=== PATIENT | male | born 1985 | race African-American/Black ===

== ENCOUNTER 2018-06-11 09:30 | Inpatient (IN) | payer OTHER ==
--- NOTE | 2018-06-11 10:41 | RAD ---
HISTORY: cp, chest pain COMPARISONS: None VIEWS: 1: frontal portable view of the chest at 10:20 AM FINDINGS: LINES AND TUBES: None. CARDIOMEDIASTINAL SILHOUETTE: The cardiomediastinal silhouette is normal for portable technique. PLEURA: The costophrenic angles are sharp. No pleural abnormalities are noted. LUNG PARENCHYMA: The lungs are clear. ABDOMEN: The upper abdomen is clear. There is no subphrenic gas. BONES AND SOFT TISSUES: No bone or soft tissue abnormalities are noted. IMPRESSION: NO ACTIVE CARDIOPULMONARY DISEASE.
[2018-06-11 10:53] LABS: ABS Basophils 0 10^3/ul (0-0.2); ABS Eosinophils 0 10^3/ul (0-0.6); ABS Lymphocytes 1.3 10^3/ul (1.0-4.8); ABS Monocytes 0.5 10^3/ul (0-0.8); ABS Neutrophils 5.4 10^3/ul (1.5-7.7); ABS Nucleated RBC 0 10^3/ul; Eosinophil % 0.4 % (0-6); Hematocrit 39 % (42-52); Hemoglobin 13.9 g/dl (14.0-18.0); Lymphocyte % 18.4 % (25-47); Mean Corpuscular HGB Conc 35 g/dl (31-36); Mean Corpuscular Hemoglobin 29 pg (27-31); Mean Corpuscular Volume 83 fL (80-94); Mean Platelet Volume 10.2 um3 (7.4-10.4); Nucleated Red Blood Cells % 0.2; Platelet Count 307 10^3/ul (150-450); Red Blood Count 4.76 10^6/ul (4.00-5.40); Red Cell Distribution Width 12 % (10.5-15); White Blood Count 7.3 10^3/ul (3.5-10.8)
[2018-06-11 11:12] LABS: EGFR Non-African American 36.1 (>60)
--- NOTE | 2018-06-11 12:06 | ED ---
HPI Chest Pain - HPI Summary HPI Summary: This is leonardo Richmond documenting for Dr. Douglas Ya MD. Pt is a 33 y/o M BIBA c/o chest pain. The chest pain began several weeks ago and is intermittent. When present it stays for a few minutes. The pain has been worse for the past 3 days and during triage he rated the pain as a 6/10 in intensity. When physician in the room pt reports pain is not present at the moment. Notes SOB and dizziness. Denies nausea. Hasnt smoked in 5 years and his last time using cocaine was months ago. FHx of stroke and pacemaker. - History of Current Complaint Chief Complaint: EDChestPainROMI Time Seen by Provider: 06/11/18 10:05 Hx Obtained From: Patient Onset/Duration: Started Days Ago - became worse 3 days ago, Started Weeks Ago Timing: Intermittent, Lasting Minutes Current Severity: Moderate Pain Intensity: 6 Pain Scale Used: 0-10 Numeric Aggravating Factor(s): Position Associated Signs and Symptoms: Positive: Chest Pain, Dizziness, Shortness of Breath. Negative: Nausea - Allergy/Home Medications Allergies/Adverse Reactions: Allergies Allergy/AdvReac Type Severity Reaction Status Date / Time Penicillins Allergy Unknown Verified 06/11/18 09:36 Reaction Details sulfamethoxazole Allergy Unknown Verified 06/11/18 09:36 [From Bactrim] Reaction Details trimethoprim [From Bactrim] Allergy Unknown Verified 06/11/18 09:36 Reaction Details Home Medications: Home Medications Hydrochlorothiazide TAB* [Hydrodiuril TAB*] 25 mg PO DAILY 06/11/18 [History Confirmed 06/11/18] Levofloxacin TAB* [Levaquin 500 Tab*] 1 tab PO DAILY 06/11/18 [History Confirmed 06/11/18] Lisinopril 10 mg PO DAILY 06/11/18 [History Confirmed 06/11/18] amLODIPine TAB* [Norvasc 5 mg TAB*] 10 mg PO DAILY 06/11/18 [History Confirmed 06/11/18] metFORMIN* [Glucophage 500 MG TAB *] 500 mg PO BID 06/11/18 [History Confirmed 06/11/18] PMH/Surg Hx/FS Hx/Imm Hx Cardiovascular History: Reports: Hx Hypertension Sensory History: Denies: Hx Deafness Infectious Disease History: No Infectious Disease History: Denies: Traveled Outside the [place] in Last 30 Days - Family History Known Family History: Positive: Diabetes, Other - Stroke - Social History Alcohol Use: None Substance Use Type: Reports: None Substance Use Comment - Amount & Last Used: hx of cocaine use Smoking Status (MU): Never Smoked Tobacco Review of Systems Positive: Other - Dizziness Positive: Chest Pain Positive: Shortness Of Breath Negative: Nausea All Other Systems Reviewed And Are Negative: Yes Physical Exam - Summary Physical Exam Summary: Appearance: Well appearing, no pain distress Skin: warm, dry, reflects adequate perfusion Head/face: normal Eyes: EOMI, ESTEBAN ENT: normal Neck: supple, non-tender Respiratory: CTA, breath sounds present Cardiovascular: RRR, pulses symmetrical Abdomen: non-tender, soft Bowel: present Musculoskeletal: normal, strength/ROM intact Neuro: normal, sensory motor intact, A&Ox3 Triage Information Reviewed: Yes Vital Signs On Initial Exam: Initial Vitals Temp Pulse Resp BP Pulse Ox 96.9 F 84 16 121/68 100 06/11/18 09:33 06/11/18 09:33 06/11/18 09:33 06/11/18 09:33 06/11/18 09:33 Vital Signs Reviewed: Yes Diagnostics - Vital Signs Vital Signs Temp Pulse Resp BP Pulse Ox 06/11/18 11:45 24 98/65 06/11/18 11:15 17 124/73 06/11/18 11:00 15 06/11/18 10:45 17 138/82 06/11/18 10:15 87 17 131/72 96 06/11/18 10:00 82 23 98 06/11/18 09:45 85 21 100/54 100 06/11/18 09:39 88 22 99 06/11/18 09:33 96.9 F 84 16 121/68 100 - Laboratory Lab Results: Lab Results 06/11/18 06/11/18 06/11/18 Range/Units 10:43 10:43 10:43 WBC 7.3 (3.5-10.8) 10^3/ul RBC 4.76 (4.00-5.40) 10^6/ul Hgb 13.9 L (14.0-18.0) g/dl Hct 39 L (42-52) % MCV 83 (80-94) fL MCH 29 (27-31) pg MCHC 35 (31-36) g/dl RDW 12 (10.5-15) % Plt Count 307 (150-450) 10^3/ul MPV 10.2 (7.4-10.4) um3 Neut % (Auto) 73.5 (38-83) % Lymph % (Auto) 18.4 L (25-47) % [place] % (Auto) 7.3 H (0-7) % Eos % (Auto) 0.4 (0-6) % Baso % (Auto) 0.4 (0-2) % Absolute Neuts (auto) 5.4 (1.5-7.7) 10^3/ul Absolute Lymphs (auto) 1.3 (1.0-4.8) 10^3/ul Absolute Monos (auto) 0.5 (0-0.8) 10^3/ul Absolute Eos (auto) 0 (0-0.6) 10^3/ul Absolute Basos (auto) 0 (0-0.2) 10^3/ul Absolute Nucleated RBC 0 10^3/ul Nucleated RBC % 0.2 INR (Anticoag Therapy) 1.00 (0.77-1.02) APTT 26.9 (26.0-36.3) seconds D-Dimer, Quantitative < 200 (Less Than 230) ng/mL Sodium 128 L (135-145) mmol/L Potassium 3.2 L (3.5-5.0) mmol/L Chloride 87 L (101-111) mmol/L Carbon Dioxide 28 (22-32) mmol/L Anion Gap 13 H (2-11) mmol/L BUN 20 (6-24) mg/dL Creatinine 2.11 H (0.67-1.17) mg/dL Est GFR ( Amer) 43.7 (>60) Est GFR (Non-Af Amer) 36.1 (>60) BUN/Creatinine Ratio 9.5 (8-20) Glucose 344 H (70-100) mg/dL Calcium 9.2 (8.6-10.3) mg/dL Total Bilirubin 0.70 (0.2-1.0) mg/dL AST 17 (13-39) U/L ALT 22 (7-52) U/L Alkaline Phosphatase 68 (34-104) U/L Total Creatine Kinase 418 H (10-223) U/L Troponin I 0.00 (<0.04) ng/mL B-Natriuretic Peptide ( - 100) pg/mL Total Protein 6.9 (6.4-8.9) g/dL Albumin 4.0 (3.2-5.2) g/dL Globulin 2.9 (2-4) g/dL Albumin/Globulin Ratio 1.4 (1-3) / Range/Units 10:43 WBC (3.5-10.8) 10^3/ul RBC (4.00-5.40) 10^6/ul Hgb (14.0-18.0) g/dl Hct (42-52) % MCV (80-94) fL MCH (27-31) pg MCHC (31-36) g/dl RDW (10.5-15) % Plt Count (150-450) 10^3/ul MPV (7.4-10.4) um3 Neut % (Auto) (38-83) % Lymph % (Auto) (25-47) % [place] % (Auto) (0-7) % Eos % (Auto) (0-6) % Baso % (Auto) (0-2) % Absolute Neuts (auto) (1.5-7.7) 10^3/ul Absolute Lymphs (auto) (1.0-4.8) 10^3/ul Absolute Monos (auto) (0-0.8) 10^3/ul Absolute Eos (auto) (0-0.6) 10^3/ul Absolute Basos (auto) (0-0.2) 10^3/ul Absolute Nucleated RBC 10^3/ul Nucleated RBC % INR (Anticoag Therapy) (0.77-1.02) APTT (26.0-36.3) seconds D-Dimer, Quantitative (Less Than 230) ng/mL Sodium (135-145) mmol/L Potassium (3.5-5.0) mmol/L Chloride (101-111) mmol/L Carbon Dioxide (22-32) mmol/L Anion Gap (2-11) mmol/L BUN (6-24) mg/dL Creatinine (0.67-1.17) mg/dL Est GFR ( Amer) (>60) Est GFR (Non-Af Amer) (>60) BUN/Creatinine Ratio (8-20) Glucose (70-100) mg/dL Calcium (8.6-10.3) mg/dL Total Bilirubin (0.2-1.0) mg/dL AST (13-39) U/L ALT (7-52) U/L Alkaline Phosphatase (34-104) U/L Total Creatine Kinase (10-223) U/L Troponin I (<0.04) ng/mL B-Natriuretic Peptide 6 ( - 100) pg/mL Total Protein (6.4-8.9) g/dL Albumin (3.2-5.2) g/dL Globulin (2-4) g/dL Albumin/Globulin Ratio (1-3) Result Diagrams: 06/11/18 10:43 06/11/18 10:43 Lab Statement: Any lab studies that have been ordered have been reviewed, and results considered in the medical decision making process. - Radiology CXR Radiology Interpretation Completed By: Radiologist - 10:10. Impression: No active cardiopulmonary disease. ED Physician reviewed this report. - Ultrasound No standard instances Ultrasound Interpretation Completed By: Radiologist - Renal US. 13:19. IMPRESSION: 1. NORMAL EXAMINATION OF THE KIDNEYS. 2. CHOLELITHIASIS. ED Physician reviewed this report. - EKG 09:48 Cardiac Rate: NL - 86 bpm EKG Rhythm: Sinus Rhythm EKG Interpretation: No acute changes Chest Pain Course/Dx - Course Course Of Treatment: Pt is a 33 y/o M BIBA c/o intermittent chest pain that he rates as a 6/10 in severity. The pain has been worse for the past 3 days. Notes SOB and dizziness and nausea. FHx of diabetes. His physical exam was normal. CXR showed no active cardiopulmonary disease. Renal US showed normal examination of the kidneys and cholelithiasis. EKG has normal sinus rhythm at 86 bpm with no acute changes. His glucose levels were 344 mg/dL. Pt was given Tylenol, Norvasc, ASA, hydrodiuril, insulin, nitroglycerin, Zofran, Klor-Con and fluids in the ED course. Pt is diagnosed with diabetes, hypertension, chest pain, and ruled out OR. Spoke with hospitalist Dr. Ortiz who agreed to admit pt. Pt is agreeable with this plan. - Chest Pain Differential Diagnosis/HQI/PQRI: Acute OR, ACS, Angina, CHF, Chest Wall, Lower Respiratory Infection - Diagnoses Provider Diagnoses: Diabetes, HTN (hypertension), Chest pain, Ruled out for myocardial infarction - Provider Notifications Discussed Care Of Patient With: Adina Ortiz Time Discussed With Above Provider: 02:01 Instructed by Provider To: Other - Dr. Ortiz agrees to admit pt. Discharge - Sign-Out/Discharge Documenting (check all that apply): Patient Departure - Admit - Discharge Plan Condition: Fair Disposition: ADMITTED TO [facility] - Billing Disposition and Condition Condition: FAIR Disposition: Admitted to [facility]
[2018-06-11 12:56] LABS: Urine Appearance Cloudy; Urine Blood Negative (Negative); Urine Color Yellow; Urine Ketones Trace (Negative); Urine Protein Negative (Negative); Urine Urobilinogen Negative (Negative)
[2018-06-11] MEDS ORDERED: Acetaminophen TAB* 325 MG PO PRN (13:00)
[2018-06-11] MEDS ORDERED: Nitroglycerin TAB 0.4 MG* 0.4 MG TAB SL PRN (13:00)
[2018-06-11] MEDS ORDERED: Ondansetron INJ* 2 MG/ML VIAL IV PRN (13:00)
[2018-06-11] MEDS ORDERED: Dextrose 50% Syringe 50 ML* 25 GM/50 ML SYRINGE IV PUSH PRN (13:16)
[2018-06-11] MEDS ORDERED: Potassium Chloride LIQUID* 20 MEQ PACKET PO ONE (13:26)
--- NOTE | 2018-06-11 14:07 | RAD ---
INDICATION: Kidney disease, unknown chronicity. COMPARISON: There are no prior studies available for comparison. TECHNIQUE: Multiple real-time images of the kidneys were obtained. FINDINGS: The kidneys are normal in size shape and echogenicity. The right kidney measured 13.1 x 5.3 x 6.4 cm and the left kidney measured 13.5 x 6.4 x 5.1 cm. No significant focal abnormality or hydronephrosis is seen. Note is made of multiple gallstones. The gallbladder wall is not thickened. IMPRESSION: 1. NORMAL EXAMINATION OF THE KIDNEYS. 2. CHOLELITHIASIS.
[2018-06-11] MEDS: NS 0.9% 1000 ML* 1,000 ML IV SCH (15:44)
[2018-06-11] MEDS: Insulin LISPRO* 1 UNITS UNIT SUBCUT SCH ×2 (17:24→20:53)
--- NOTE | 2018-06-11 20:38 | HP ---
CC: [facility] * ADMISSION HISTORY AND PHYSICAL: DATE OF ADMISSION: 06/11/18 PRIMARY CARE PROVIDER: [facility]. MY ATTENDING WHILE IN THE HOSPITAL: Dr. Adina Ortiz.* (DICTATED BY JO-ANN RUBI) CHIEF COMPLAINT: Chest pain, hemoptysis. HISTORY OF PRESENT ILLNESS: Mr. Carmona is a 33-year-old male with past medical history significant for diabetes mellitus, type 2; mild intermittent asthma; hypertension; obesity, who is currently incarcerated and was transferred from [facility] to [facility]. The patient states that he has been having relatively abrupt onset of fatigue, shortness of breath, which occurs both with activity, particularly with leaning forward as well as at rest, occasionally associated wheezing, not always associated with wheezing, dissimilar to his previous history of intermittent asthma. The patient states that 1 week ago, he had a chest pain and a cough with moderate amount of hemoptysis, which he coughed into the toilet. The patient has not had issues with chronic cough or recent persistent cough. The patient states that he around that time began attempting to exercise more to get in better shape; however, he has only been managing to do approximately 10 to 15 pushups at a time due to feeling rather fatigued and having a very poor appetite. The patient had 1 episode of dark urine last week, but no other changes in his urine. No blood in his urinates. No pain when he urinates. The patent has no know history of kidney disease. The patient had another episode of substernal pain chest pain last night, which was sharp and associated with dizziness and nausea that resolved on its own after several minutes. The patient had another episode this morning of similar pain and was sent to the emergency room and was given aspirin and nitroglycerin, which helped somewhat. He was also given Zofran, which helped with his nausea. The patient states that the pain radiated down in his left arm and his back. The patient was recently diagnosed with a rash both in his gluteal cleft as well as his left groin. The patient stated that he gets frequent folliculitis in his axilla, which resolves spontaneously or antibiotics and he was started on Levaquin yesterday for his rash and had only taken 1 dose. The patient denies any recent severe increase in activity, no other recent illnesses, no other recent changes in his medications or diet. The patient states that his most recent weight that he was aware of is approximately 340 pounds and his weight today in the emergency department was approximately 300 pounds. The patient in the emergency department had sodium of 128, potassium 3.2, creatinine of 2.11, BUN of 20, glucose of 344, creatine kinase of 418, troponin I of 0.00 and a BNP of 6 with urine showing trace ketones and a large amount of glucose. Due to the concern for chest pain and kidney disease of unknown chronicity, we were asked to admit to the hospital. PAST MEDICAL HISTORY: Diabetes mellitus, hypertension, heart murmur, mild intermittent asthma. PAST SURGICAL HISTORY: None. MEDICATIONS: 1. Lisinopril 10 mg p.o. daily. 2. Hydrochlorothiazide 25 mg p.o. daily. 3. Amlodipine 10 mg p.o. daily. 4. Levaquin 500 mg p.o. daily x1. 5. Metformin 500 mg b.i.d. ALLERGIES: PENICILLIN and BACTRIM. FAMILY HISTORY: The patient's mother had diabetes, hypertension, stroke, pacemaker, and heart disease. The patient's father of natural causes. The patient has several brothers all of whom have diabetes and his oldest brother has congestive heart failure due to [place] as well. SOCIAL HISTORY: The patient smoked 1 to 2 cigarettes a day for approximately 4 years, but quit. The patient does not drink alcohol, he has never abused alcohol. The patient used to use crack cocaine for a small amount of time many years ago. 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 The patient is and has 5 children. The patient would like to be a full code. REVIEW OF SYSTEMS: A 14-point review of systems was reviewed and is negative except as above. PHYSICAL EXAMINATION GENERAL: The patient is a 33-year-old male, who appears stated age and sitting comfortably in the bed, in no acute distress. HEENT: Head: Normocephalic, atraumatic. Sclerae anicteric. No conjunctival injection. Nasal mucosa is moist. Oral mucosa is moist. No oropharyngeal erythema, discharge, or exudate. NECK: Supple, nontender. No lymphadenopathy. No carotid bruits auscultated. No JVD. RESPIRATORY: Clear to auscultation bilaterally. No wheezes, rales, or rhonchi. Good air exchange bilaterally. Egophony negative. CARDIAC: Regular rate and rhythm. No clicks, murmurs, gallops, or rubs. Pulses are 2+ in the bilateral dorsalis pedis, posterior tibialis, and radial areas. No bilateral lower extremity edema or calf tenderness noted. ABDOMEN: Soft, nontender, nondistended. Bowel sounds present, normoactive in all 4 quadrants. No hepatosplenomegaly. No abdominal bruits auscultated. No hepatojugular reflux. GENITOURINARY: No suprapubic tenderness and left-sided CVA tenderness. SKIN: The patient has a small open area at the top of his gluteal cleft and a small nonerythematous papule in his left groin, not currently draining. NEUROLOGIC: Cranial nerves II through XII intact except for right-sided esotropia. No focal deficits. Alert and oriented x3 PSYCHIATRIC: Pleasant and cooperative. DIAGNOSTIC STUDIES/LAB DATA: White blood cell count 7.3, hemoglobin 13.9, platelet count 307. INR 1.0, aPTT is 26.9. D-dimer less than 200. Sodium 128 , potassium 3.2, chloride 87, carbon dioxide 28, anion gap 13, BUN 20, creatinine 2.11, glucose 344, calcium 9.2. Bilirubin 0.7, AST 17, ALT 22, alkaline phosphatase 68. Creatine kinase 418, CK-MB 1.6. Troponin 0.00. BNP 6. Total protein 6.9, albumin 4.0, globulin 2.9. Urine shows trace ketones and large amount of glucose. No other significant abnormalities. Studies: EKG shows normal sinus rhythm. Q-waves are present. No ST-segment abnormalities. No hypertrophy or enlargement. QTc of 522, rate of 86. No prior study to compare. Chest x-ray read as no active cardiopulmonary disease. ASSESSMENT AND PLAN/IMPRESSION: Mr. Carmona is a 33-year-old male with past medical history significant for diabetes mellitus, hypertension, mild intermittent asthma, who presents with 3 episodes of chest pain over the past week, 2 particularly being within the left 24 hours, who has new elevated creatinine as well as hyponatremia and hemoptysis who will be admitted to the hospital for evaluation of his chest pain to rule out myocardial infarction as well as to establish an etiology for his kidney disease. 1. Chest pain. The patient had a 3 episodes of chest pain. The patient has a ZOILA risk of 2 due to risk factors including family history of coronary artery disease, hypertension, and diabetes. The patient will have a lipid profile drawn. The patient will also have a hemoglobin A1c drawn. The patient will have 3 troponins trended. The patient does not have ischemic EKG changes at this time. The patient's troponin and CK-MB are currently negative. Will add on myoglobin, this may be positive in the setting of elevated creatine kinase and would not necessarily indicate early myocardial infarction. We will repeat EKG in the morning, get a transthoracic echocardiogram to assess for wall motion abnormalities. If the patient is still in the hospital on Thursday when a stress echocardiogram would be available, I recommend this be performed. However, if the patient is stable for discharge over the weekend, an outpatient stress test may also be appropriate. 2. Elevated creatinine of unknown chronicity. The patient has no known history of chronic kidney disease. The patient had 1 episode of dark urine last week. The patient has recently started exercising more, but has not been exercising excessively and has had issues with fatigue, shortness of breath, and weight loss over the past couple of weeks, which started relatively suddenly. The patient's urinalysis is benign, not showing any signs of macroalbuminuria. Given the patient's age, it is unlikely that this level of creatinine elevation is related solely to his hypertension and diabetes. The patient also does not have an elevated BUN to creatinine ratio to indicate a prerenal etiology of his elevated creatinine. We will calculate his FENa, which is pending as well as get an ultrasound of the patient's kidneys to help assess the chronicity of his kidney disease. We will trend the patient's creatine kinase and myoglobin. It is possible that even his minor increase in exertion caused rhabdomyolysis, which is currently resolving. We will give the patient fluid to help with both prerenal and the possibility of rhabdomyolysis. The patient will have a repeat BMP in the morning. We will replace the patient's potassium. The patient's urinalysis is benign showing no blood, casts , white blood cells, or protein. This makes intrinsic autoimmune process affecting the patient's kidneys less likely. However, given the patient's hemoptysis in association with new kidney disease, there is concern for autoimmune disease. We will send off an ESR, CRP, and ANCA panel. Handle Machine Operator consultation should be considered if the patient continues to have elevated creatinine after fluids. The patient's lisinopril will be held due to elevated creatinine. 3. Hemoptysis, shortness of breath. The patient has hemoptysis of unknown cause. The patient does not have recent history of nosebleeds or evidence on exam of nosebleeds. The patient has no bleeding diathesis that is known. The patient's INR and aPTT are normal. The patient's D-dimer is negative. The patient has no signs of DVT. The patient is not tachycardic. The patient has no infiltrate on chest x-ray. The patient has no signs of consolidation on exam. As above, there is concern for possible vasculitis, though these conditions are rare. The patient will be monitored for hemoptysis and has a repeat chest x-ray in the morning to assess for possible pneumonia. The patient is also having a CRP and ESR drawn to help guide treatment. The patient has no tachycardia, hypotension, or fever and will not be started on antibiotics at this time. 4. Hypertension. Continue the patient's amlodipine and hydrochlorothiazide. The patient is currently normotensive. Hold lisinopril as above. 5. Diabetes mellitus, type 2. The patient has an elevated glucose of 344. Now , the patient does not routinely monitor his blood sugars. The patient was started on sliding scale insulin and his metformin will be held in the setting of his decreased GFR. Hemoglobin A1c will be drawn. Treatment with either oral anti- hypoglycemics or insulin should be based upon that value. 6. Hyponatremia. The patient has a sodium of 128. If the patient's glucose is taken into account, this corrects to 135, which is within normal limits. 7. Hypokalemia. The patient's potassium is low. Given the patient's elevated creatinine, this is unexpected. This may be due to diuresis due to uncontrolled diabetes. We will replace. 8. DVT prophylaxis. The patient is a low risk. The patient will have SCDs due to relative immobilization from shackles. 9. FEN. The patient will have fluids at 100 mL an hour. The patient will have a heart-healthy consisting carbohydrate diet. 10. Code status. The patient would like to be a full code. 11. Disposition. The patient will be admitted to observation. TIME SPENT: Approximately 75 minutes were spent on this admission, 45 of which was spent [id number] with the patient, obtaining history and physical and discussing the treatment plan. The plan has been discussed with my attending, Dr. Adina Ortiz, and she is in agreement. JO-ANN RUBI [id number]/[facility] #: [id number] NATALYA
--- NOTE | 2018-06-11 21:35 | ECHO ---
Patient: EDEN BARRETT [id number] [facility] Rec#: [id number] : 1985 Date: 06/11/2018 Age: 33y Height: 180.3 cm / 71.0 in Weight: 135.2 kg / 298.0 lbs Sex: M BSA: 2.5 Room#: 432 Admit Date#: 06/11/2018 Type: Inpatient Referring: Gee Villagran Reading: Ronnie Beckford MD Registered Nurse Surgical Services: Brianna De La Cruz RN RDCS Transthoracic Echocardiogram Indication: Chest pain BP: 125/79 HR: 84 Rhythm: NSR Findings History: HTN, family history of heart disease, former smoker, former cocaine use, obesity. Technical Comments: The study quality is fair. The study is technically limited due to patient body habitus. The study is technically limited due to the patient's smoking history. Completed at 1810. Left Ventricle: The left ventricular chamber size is normal. Mild to moderate concentric left ventricular hypertrophy is observed. Global left ventricular wall motion and contractility are within normal limits. There is normal left ventricular systolic function. The estimated ejection fraction is greater than 65%. The assessment of diastolic function is non-diagnostic. Left Atrium: The left atrial chamber size is normal. Right Ventricle: The right ventricular cavity size is normal. The right ventricular global systolic function is normal. Right Atrium: The right atrial cavity size is normal. Aortic Valve: The aortic valve is trileaflet. The aortic valve leaflets are mildly thickened. There is no evidence of aortic regurgitation. There is no evidence of aortic stenosis. Mitral Valve: The mitral valve leaflets are mildly thickened. There is no evidence of mitral regurgitation. There is no evidence of mitral stenosis. Tricuspid Valve: The tricuspid valve leaflets are normal. There is trace tricuspid regurgitation. Unable to estimate the right ventricular systolic pressure. There is no tricuspid stenosis. Pulmonic Valve: The pulmonic valve appears normal. There is a trace pulmonic regurgitation. There is no pulmonic stenosis. Pericardium: There is no significant pericardial effusion. A pericardial fat pad is visualized. Aorta: There is no dilatation of the ascending aorta. There is no dilatation of the aortic arch. There is no dilation of the aortic root. Pulmonary Artery: The main pulmonary artery appears normal. Venous: The venous system is not well visualized. The inferior vena cava is not visualized. Summary: There was not any prior study for comparison. Conclusions Mild to moderate concentric left ventricular hypertrophy is observed. The estimated ejection fraction is greater than 65%. No significant valve dysfunction. Measurements Name Value Normal Range RVIDd (AP) 2D 2.6 cm (0.9 - 2.6) RVDdMajor (2D) 3.1 cm (2.2 - 4.4) RAd ISD 4CH 3.7 cm (3.4 - 4.9) RA (A4C)W 2.8 cm (2.9 - 4.6) IVSd (2D) 1.3 cm (0.6 - 1) LVPWd (2D) 1.2 cm (0.6 - 1) LVIDd (2D) 4.2 cm (3.6 - 5.4) LVIDs (2D) 2.9 cm - LV FS (2D) 29 % (25 - 45) Aortic Annulus 2.2 cm (1.4 - 2.6) Ao root diameter (2D) 2.6 cm (2.1 - 3.5) Ascending Ao 2.7 cm (2.1 - 3.4) Aortic arch 2.2 cm (1.8 - 3.4) LA dimension (AP) 2D 2.7 cm (2.3 - 3.8) LAd ISD 4CH 3.8 cm (2.9 - 5.3) LA ISD 4CH W 3.2 cm (2.5 - 4.5) Name Value Normal Range LA ESV SP 4CH (A/L) 23 ml - LA ESV SP 2CH (A/L) 33 ml - LA ESV BP (A/L) 30 ml - LA ESV BP (A/L) index 12 ml/m2 - LA ESV SP 4CH (MOD) 20 ml - LA ESV SP 2CH (MOD) 31 ml - Name Value Normal Range MV E-wave Vmax 0.84 m/sec - MV deceleration time 283 msec - MV A-wave Vmax 0.73 m/sec - MV E:A ratio 1.2 ratio - LV septal e' Vmax 0.1 m/sec - LV lateral e' Vmax 0.13 m/sec - LV E:e' septal ratio 8.4 ratio - LV E:e' lateral ratio 6.5 ratio - Name Value Normal Range AV Vmax 2.2 m/sec - AV VTI 32.4 cm - AV peak gradient 18 mmHg - AV mean gradient 11 mmHg - LVOT Vmax 1.3 m/sec - LVOT VTI 23.1 cm - LVOT peak gradient 6.8 mmHg - LVOT mean gradient 4.1 mmHg - BUD Vmax 1.6 m/sec - Name Value Normal Range PV Vmax 1.4 m/sec -
[2018-06-12] MEDS: NS 0.9% 1000 ML* 1,000 ML IV SCH ×3 (02:29→21:41)
[2018-06-12 04:49] LABS: ABS Basophils 0 10^3/ul (0-0.2); ABS Eosinophils 0.1 10^3/ul (0-0.6); ABS Lymphocytes 2.3 10^3/ul (1.0-4.8); ABS Monocytes 0.7 10^3/ul (0-0.8); ABS Neutrophils 3.3 10^3/ul (1.5-7.7); ABS Nucleated RBC 0 10^3/ul; Eosinophil % 1.2 % (0-6); Hematocrit 38 % (42-52); Hemoglobin 13.2 g/dl (14.0-18.0); Lymphocyte % 35.6 % (25-47); Mean Corpuscular HGB Conc 35 g/dl (31-36); Mean Corpuscular Hemoglobin 29 pg (27-31); Mean Corpuscular Volume 83 fL (80-94); Mean Platelet Volume 9.6 um3 (7.4-10.4); Nucleated Red Blood Cells % 0.2; Platelet Count 294 10^3/ul (150-450); Red Blood Count 4.54 10^6/ul (4.00-5.40); Red Cell Distribution Width 12 % (10.5-15); White Blood Count 6.4 10^3/ul (3.5-10.8)
[2018-06-12 05:07] LABS: EGFR Non-African American 63.2 (>60)
[2018-06-12] MEDS: Potassium Chlor TAB* 20 MEQ TAB.ER PO SCH ×2 (07:28→12:36)
[2018-06-12] MEDS: amLODIPine TAB* 5 MG PO SCH (07:28)
[2018-06-12] MEDS: KCL 20 MEQ/100 ML IVPREMIX* 20 MEQ/100 ML BAG IV SCH ×3 (07:28→13:42)
[2018-06-12] MEDS: Aspirin 81 mg CHEW TAB* 81 MG TAB.CHEW PO SCH (07:28)
--- NOTE | 2018-06-12 08:52 | RAD ---
INDICATION: Chest pain. Hemoptysis.. Recent normal chest x-ray. Known cholelithiasis. Request for CT chest. COMPARISON: Chest x-ray June 11, 2018; renal sonogram June 11, 2018 TECHNIQUE: Noncontrast axial source images were obtained from the thoracic inlet to the hemidiaphragms. Coronal and sagittal reconstructed images were acquired. The visualized neck to include the thyroid appear normal. Chest wall: There are no acute abnormalities of the bony thorax or chest wall. There is no supraclavicular, infraclavicular, or axillary lymphadenopathy. Lungs : There are no pulmonary parenchymal masses or infiltrates. The pulmonary interstitium appears normal. There are no endobronchial lesions. Cardiomediastinal structures: The heart is normal in size. There is no pericardial effusion. There is no evidence of aortic aneurysm or dissection. The pulmonary vessels appear normal. There is no mediastinal or hilar adenopathy. The esophagus appears normal. Pleura : There are no pleural-based masses or effusions. Other: Limited views of the upper abdomen show multiple noncalcified gallstones. IMPRESSION: NORMAL CHEST. CHOLELITHIASIS..
[2018-06-12] MEDS ORDERED: Lisinopril TAB* 10 MG PO SCH (09:00)
[2018-06-12] MEDS ORDERED: Hydrochlorothiazide TAB* 25 MG PO SCH (09:00)
[2018-06-12] MEDS: Insulin LISPRO* 1 UNITS UNIT SUBCUT SCH ×4 (09:17→21:41)
--- NOTE | 2018-06-12 14:23 | PN ---
Subjective Date of Service: 06/12/18 Interval History: HOSPITALIST PROGRESS NOTE Patient seen and examined at bedside. Care reviewed and d/w Beata Felder RN. He feels better today. Chest pain is down to 1/10, denies palpitations or dyspnea. No further episodes of hemoptysis. Family History: Unchanged from Admission Social History: Unchanged from Admission Past Medical History: Unchanged from Admission Objective Active Medications: Acetaminophen (Tylenol Tab*) 650 mg PO Q6H PRN PRN Reason: FEVER/PAIN Amlodipine Besylate (Norvasc Tab*) 10 mg PO DAILY [facility] Last Admin: 06/12/18 07:28 Dose: 10 mg Aspirin (Aspirin 81 Mg Chew Tab*) 81 mg PO DAILY [facility] Last Admin: 06/12/18 07:28 Dose: 81 mg Dextrose (D50w Syringe 50 Ml*) 12.5 gm IV PUSH .FOR FS < 60 - SS PRN PRN Reason: FS < 60 Hydrochlorothiazide (Hydrodiuril Tab*) 25 mg PO DAILY [facility] Last Admin: 06/12/18 07:28 Dose: 25 mg Sodium Chloride (Ns 0.9% 1000 Ml*) 1,000 mls @ 100 mls/hr IV PER RATE [facility] Last Admin: 06/12/18 10:37 Dose: 100 mls/hr Insulin Human Lispro (Humalog*) 0 units SUBCUT ACHS [facility]; Protocol Last Admin: 06/12/18 12:36 Dose: 9 units Nitroglycerin (Nitroglycerin Tab 0.4 Mg*) 0.4 mg SL Q5M PRN PRN Reason: ANGINA Ondansetron HCl (Zofran Inj*) 4 mg IV Q6H PRN PRN Reason: NAUSEA Vital Signs - 8 hr 06/12/18 06/12/18 07:22 11:26 Temperature 97.3 F 97.5 F Pulse Rate 85 84 Respiratory 16 18 Rate Blood Pressure 123/72 134/87 (mmHg) O2 Sat by Pulse 100 100 Oximetry Oxygen Devices in Use Now: None Appearance: Young morbid obese gentleman lying in bed in NAD. Eyes: No Scleral Icterus Ears/Nose/Mouth/Throat: Mucous Membranes Moist Neck: Trachea Midline Respiratory: Symmetrical Chest Expansion and Respiratory Effort, Clear to Auscultation Cardiovascular: NL Sounds; No Murmurs; No JVD, RRR Abdominal: NL Sounds; No Tenderness; No Distention - obese Neurological: Alert and Oriented x 3, NL Muscle Strength and Tone Result Diagrams: 06/12/18 04:38 06/12/18 04:38 Assess/Plan/Problems-Billing Assessment: Mr Carmona is a 33yo M with PMH of morbid obesity with BMI 43, type 2 DM, HTN, asthma, who presented to ED with c/o chest pain and hemoptysis. - Patient Problems (1) Chest pain Comment: - ACS is ruled out with serial negative troponins. - EKG shows no ischemic changes, D-dimer was negative. - CT chest without contrast showed no parenchymal disease. - ZOILA score is 3 and patient has risk factors, including DM, HTN, and family history - will order stress test as inpatient. - Continue Aspirin. - Check lipid profile. (2) DENNY (acute kidney injury) Comment: - Probably pre-renal in the setting of poor oral intake. - Improving wiht IV hydration. (3) Hemoptysis Comment: - patient states he had 2 episodes of hemoptysis, described as white phlegm with specks of blood mixed in. Last episode was 4 days ago. - CT chest showed no parenchymal disease. - Continue to monitor. (4) HTN (hypertension) Comment: - Controlled - continue Amlodipine. ACEI on hold due to DENNY. (5) Diabetes Comment: - Uncontrolled. - Metformin on hold due to DENNY. - Start lantus and continue Lispro SS. (6) DVT prophylaxis Comment: - SQ heparin. (7) Full code status Status and Disposition: Change to inpatient.
[2018-06-12] MEDS: Insulin GLARGINE(*) 1 UNITS UNIT SUBCUT SCH (17:21)
[2018-06-12] MEDS ORDERED: Magnesium Hydroxide LIQ* 30 ML UDC PO ONE (21:22)
[2018-06-12] MEDS: Heparin VIAL(*) 5000 UNITS/ML VIAL (FIVE THOUSAND) SUBCUT SCH (21:25)
[2018-06-13] MEDS: Heparin VIAL(*) 5000 UNITS/ML VIAL (FIVE THOUSAND) SUBCUT SCH ×3 (05:13→20:55)
[2018-06-13 07:06] LABS: EGFR Non-African American 85.5 (>60)
[2018-06-13] MEDS: amLODIPine TAB* 5 MG PO SCH (08:51)
[2018-06-13] MEDS: Aspirin 81 mg CHEW TAB* 81 MG TAB.CHEW PO SCH (08:51)
[2018-06-13] MEDS: Insulin LISPRO* 1 UNITS UNIT SUBCUT SCH ×4 (08:51→21:23)
[2018-06-13] MEDS: NS 0.9% 1000 ML* 1,000 ML IV SCH (08:54)
[2018-06-13] MEDS: Insulin GLARGINE(*) 1 UNITS UNIT SUBCUT SCH (15:06)
--- NOTE | 2018-06-13 16:17 | PN ---
Subjective Date of Service: 06/13/18 Interval History: HOSPITALIST PROGRESS NOTE Patient seen and examined at bedside. He feels better today, no further episodes of chest pain. Anxious for discharge so he can finish the program at [place] and return to his family. Family History: Unchanged from Admission Social History: Unchanged from Admission Past Medical History: Unchanged from Admission Objective Active Medications: Acetaminophen (Tylenol Tab*) 650 mg PO Q6H PRN PRN Reason: FEVER/PAIN Amlodipine Besylate (Norvasc Tab*) 10 mg PO DAILY [facility] Last Admin: 06/13/18 08:51 Dose: 10 mg Aspirin (Aspirin 81 Mg Chew Tab*) 81 mg PO DAILY [facility] Last Admin: 06/13/18 08:51 Dose: 81 mg Dextrose (D50w Syringe 50 Ml*) 12.5 gm IV PUSH .FOR FS < 60 - SS PRN PRN Reason: FS < 60 Heparin Sodium (Porcine) (Heparin Vial(*)) 5,000 units SUBCUT Q8HR [facility] Last Admin: 06/13/18 14:08 Dose: Not Given Sodium Chloride (Ns 0.9% 1000 Ml*) 1,000 mls @ 100 mls/hr IV PER RATE [facility] Last Admin: 06/13/18 08:54 Dose: 100 mls/hr Insulin Glargine (Lantus(*)) 10 units SUBCUT Q24H [facility] Last Admin: 06/13/18 15:06 Dose: 10 units Insulin Human Lispro (Humalog*) 0 units SUBCUT ACHS [facility]; Protocol Last Admin: 06/13/18 12:53 Dose: 3 units Nitroglycerin (Nitroglycerin Tab 0.4 Mg*) 0.4 mg SL Q5M PRN PRN Reason: ANGINA Ondansetron HCl (Zofran Inj*) 4 mg IV Q6H PRN PRN Reason: NAUSEA Vital Signs - 8 hr 06/13/18 06/13/18 11:58 15:09 Temperature 98.1 F 98.6 F Pulse Rate 77 80 Respiratory 16 18 Rate Blood Pressure 130/74 128/70 (mmHg) O2 Sat by Pulse 100 100 Oximetry Oxygen Devices in Use Now: None Appearance: Pleasant morbid obese gentleman lying in bed in [facility]. Eyes: No Scleral Icterus Ears/Nose/Mouth/Throat: Mucous Membranes Moist Neck: Trachea Midline Respiratory: Symmetrical Chest Expansion and Respiratory Effort, Clear to Auscultation Cardiovascular: NL Sounds; No Murmurs; No JVD, RRR Neurological: Alert and Oriented x 3, NL Muscle Strength and Tone Result Diagrams: 06/12/18 04:38 06/13/18 05:39 Assess/Plan/Problems-Billing Assessment: Mr Carmona is a 33yo M with PMH of morbid obesity with BMI 43, type 2 DM, HTN, asthma, who presented to ED with c/o chest pain and hemoptysis. - Patient Problems (1) Chest pain Comment: - ACS is ruled out with serial negative troponins. - EKG shows no ischemic changes, D-dimer was negative. - CT chest without contrast showed no parenchymal disease. - ZOILA score is 3 and patient has risk factors, including DM, HTN, and family history - will order stress test as inpatient. - Continue Aspirin. - Lipid profile shows LDL 86. (2) DENNY (acute kidney injury) Comment: - Probably pre-renal in the setting of poor oral intake. - Resolved wiht IV hydration. (3) Hemoptysis Comment: - patient states he had 2 episodes of hemoptysis, described as white phlegm with specks of blood mixed in. Last episode was 4 days ago. - CT chest showed no parenchymal disease. - Continue to monitor. (4) HTN (hypertension) Comment: - Controlled - continue Amlodipine. ACEI on hold due to DENNY. (5) Diabetes Comment: - Chronically uncontrolled with A1c 9.4. - Metformin on hold due to DENNY. - Continue Lantus and Lispro SS. (6) DVT prophylaxis Comment: - SQ heparin. (7) Full code status Status and Disposition: Change to inpatient.
[2018-06-14] MEDS: Heparin VIAL(*) 5000 UNITS/ML VIAL (FIVE THOUSAND) SUBCUT SCH (04:56)
[2018-06-14] MEDS: Insulin LISPRO* 1 UNITS UNIT SUBCUT SCH ×2 (10:08→12:42)
[2018-06-14] MEDS: Aspirin 81 mg CHEW TAB* 81 MG TAB.CHEW PO SCH (10:09)
[2018-06-14] MEDS: amLODIPine TAB* 5 MG PO SCH (10:09)
--- NOTE | 2018-06-14 10:15 | RAD ---
Edited for charges. INDICATION: Chest pain. COMPARISON: There are no prior studies available for comparison. Technique: A single day myocardial perfusion stress study was performed. Initially the resting study was performed. The patient was given an intravenous injection of 10.7 mCi of technetium 99m tetrofosmin and and the heart was imaged in multiple projections. The patient returned later in the day and under the direction of Dr. Lopez, the patient was given intervenous injection of Lexiscan. Subsequently the patient was given intravenous injection of 25.7 mCi of technetium 99m tetrofosmin and the heart was imaged in multiple projections. Images were reconstructed in the axial, sagittal and coronal planes and in a 3- D format. FINDINGS: There appears to be normal wall motion and myocardial thickening. The left ventricular ejection fraction was calculated to be 56%. There is decreased activity in the inferior wall on the nonattenuated corrected images which appears improved on the attenuation corrected images most consistent with attenuation artifact. No significant focal perfusion defects are seen after pharmacologic stress or rest. IMPRESSION: NO EVIDENCE FOR INFARCT OR ISCHEMIA. ASSESSMENT: Low risk. Based on imaging criteria from ACC/AHA 2002 Guideline Update for the Management of Patients With Chronic Stable Angina Table 23. Noninvasive Risk Stratification. MTDD
[2018-06-14 11:31] VITALS: BP 121/76
[2018-06-14] MEDS ORDERED: Regadenoson* 0.4 MG/5 ML SYRINGE ONE (13:50)
--- NOTE | 2018-06-15 14:46 | DS ---
CC: Belinda Bear NP, at [facility]. * DISCHARGE SUMMARY: DATE OF ADMISSION: 06/11/18 DATE OF DISCHARGE: 06/14/18 PRIMARY CARE PROVIDER: Belinda Bear NP DISCHARGE DIAGNOSES: 1. Chest pain, acute coronary syndrome ruled out, likely musculoskeletal. 2. Hemoptysis. 3. Acute kidney injury, likely secondary to combination of dehydration, diuretic, and NEHEMIAS inhibitor use. SECONDARY DIAGNOSES: 1. Morbid obesity with her BMI of 43. 2. Type 2 diabetes. 3. Hypertension. 4. Asthma. MEDICATION AT THE TIME OF TRANSFER: 1. Metformin 500 mg p.o. b.i.d. 2. Amlodipine 10 mg p.o. daily. NEW MEDICATION: 1. Glipizide XL 5 mg p.o. daily NOTE: Lisinopril and hydrochlorothiazide were discontinued. HOSPITAL COURSE: Mr. Carmona is a 33-year-old male with a past medical history as stated above that presented to the emergency room in 06/11/18 with complaints of chest pain and hemoptysis. The patient was trying to exercise more and doing pushups and the pain was described as retrosternal radiating to his left shoulder. He also had complaints of fatigue of nausea and also 2 episodes of hemoptysis that were described as a small amount of bright red blood mixed with whitish/yellowish phlegm. For more details about his presentation, I refer to his history and physical. In the emergency room, the patient had a chest x-ray that showed no active cardiopulmonary disease. His EKG showed no ischemic changes and serial troponins were negative. He was admitted for further evaluation and management, especially considering his risk factors for coronary artery disease as well as a strong family history of diabetes and heart disease. The patient had a transthoracic echocardiogram showed the ejection fraction greater than 65% with [id number] concentric LVH and no significant valve dysfunction. CT of the chest without contrast was read as a normal chest and only incidental finding of cholelithiasis. On admission, the patient was found to have a creatinine of 2.1 with an urinalysis that showed only glucose 3+ and trace ketones. The impression was the patient was dehydrated and lisinopril and hydrochlorothiazide were also contributing to his acute kidney injury. Those 2 medications were discontinued. He was started on IV hydration and his creatinine is down to 1 on the day of discharge. As mentioned above, considering his risk factors and strong family history, decision was made to keep the patient in the hospital, so he could have a stress test that he underwent on 06/14/18. Lexiscan Myoview showed no evidence for infarct or ischemia and the impression is that his chest pain was likely musculoskeletal in the setting of doing pushups. The patient's diabetes was found to be uncontrolled with an hemoglobin A1c of 9.4. For that reason, glipizide was added to his regimen, but he will need further adjustment of his medications as outpatient. His blood pressure has been well controlled with amlodipine only, and lisinopril and hydrochlorothiazide were discontinued. The patient is medically stable for discharge today. Belinda Bear NP, was contacted over the phone and this case was discussed with her too. PHYSICAL EXAMINATION: Vital Signs: Temperature 98.1, heart rate is 81, respiratory rate is 20, oxygen saturation 99% on room air, blood pressure is 134 /86. General: The patient is a young, morbidly obese gentleman, sitting up in bed, in no acute distress. CVS: S1, S2. Regular rate and rhythm. Chest: Breath sounds present bilaterally with no added sounds. Neuro: He is alert and oriented x3. Able to move all 4 extremities. DIET: Heart-healthy, consistent carb diet. ACTIVITIES: As tolerated. DISPOSITION: To [facility]. STATUS WHILE IN THE HOSPITAL: Inpatient. Please keep in mind that this is a summarized version of this patient's hospital stay. If you need more information, please feel free to call me at or please obtain the full medical records. TIME SPENT: Approximately 45 minutes were spent to complete this discharge. [id number]/CPS #: [id number] NATALYA
== END 2018-06-14 12:55 | DRG 203 ==
LOC: ED 09:30 → EEVIPCON 13:00 → MEDTELE 13:00 → OBSVTOIN 06-13 11:25
PROVIDERS: ADMIT Hospitalist; ATTEND Internal Medicine
DX: R07.89 Other chest pain (principal); N17.9 Acute kidney failure, unspecified; R04.2 Hemoptysis; E87.1 Hypo-osmolality and hyponatremia; Z68.41 Body mass index [BMI] 40.0-44.9, adult; E11.65 Type 2 diabetes mellitus with hyperglycemia; E66.01 Morbid (severe) obesity due to excess calories; J45.20 Mild intermittent asthma, uncomplicated; E86.0 Dehydration; I10 Essential (primary) hypertension; E87.6 Hypokalemia; R01.1 Cardiac murmur, unspecified; Z79.84 Long term (current) use of oral hypoglycemic drugs; Z79.899 Other long term (current) drug therapy; Z88.1 Allergy status to other antibiotic agents; Z88.0 Allergy status to penicillin; Z83.3 Family history of diabetes mellitus; Z82.3 Family history of stroke; Z82.49 Family history of ischemic heart disease and other diseases of the circulatory system; Z87.891 Personal history of nicotine dependence
CPT/HCPCS: 36415; 71045; 71250; 76775; 78452; 80048; 80053; 80061; 80307; 81003; 82550; 82553; 82570; 83036; 83735; 83874; 83880; 84300; 84484; 85025; 85379; 85610; 85652; 85730; 86140; 86255; 93005; 93017; 93306; 99285; A9270-GY; A9502; G0378; J2785; J3480